=== PATIENT | male | born 1955 | race Caucasian/White ===

== ENCOUNTER → 2017-08-12 | Outpatient (CLI) | payer OTHER | LOC: CIMAGING 15:08 | PROVIDERS: ATTEND Specialist | DX: J40 Bronchitis, not specified as acute or chronic (principal) | CPT/HCPCS: 71046-PO ==

== ENCOUNTER → 2017-12-23 | Outpatient (CLI) | payer OTHER | LOC: CIMAGING 11:33 | PROVIDERS: ATTEND Internal Medicine Pulmonary Disease | DX: R05 Cough (principal); R91.1 Solitary pulmonary nodule; R59.0 Localized enlarged lymph nodes | CPT/HCPCS: 71250-PO ==

== ENCOUNTER → 2018-06-01 | Outpatient (CLI) | payer OTHER | LOC: FIMAGING 09:30 | PROVIDERS: ATTEND Internal Medicine Pulmonary Disease | DX: J01.00 Acute maxillary sinusitis, unspecified (principal) ==

== ENCOUNTER → 2018-12-07 | Outpatient (CLI) | payer OTHER | LOC: CIMAGING 08:25 ==